=== PATIENT | male | born 1985 | race Native Hawaiian/Other Pacific Islander ===

== ENCOUNTER 2021-08-12 18:34 | Emergency (ER) | payer OTHER ==
[~2021-08-12] VITALS: Ht 175.3 cm; Wt 108.0 kg
[2021-08-12 20:00] VITALS: BP 138/90
== END 2021-08-12 20:00 | disposition home or self-care (01) ==
LOC: ED 18:34
DX: J32.8 Other chronic sinusitis (principal); G44.209 Tension-type headache, unspecified, not intractable
CPT/HCPCS: 96372; 99283; J0696; J1885

== ENCOUNTER 2021-08-13 17:19 | Emergency (ER) | payer OTHER ==
[~2021-08-13] VITALS: Ht 175.3 cm; Wt 108.9 kg
[2021-08-13 20:08] LABS: PLATELET COUNT 318 K/uL (142-355)
[2021-08-13 21:48] VITALS: BP 115/65; TEMP 98.2
== END 2021-08-13 21:48 | disposition home or self-care (01) ==
LOC: ED 17:19
PROVIDERS: Family Medicine
DX: R51.9 Headache, unspecified (principal); I10 Essential (primary) hypertension; J32.8 Other chronic sinusitis
CPT/HCPCS: 36415; 80053; 85027; 99283